=== PATIENT | male | born 1965 | race Caucasian/White ===

== ENCOUNTER 2022-04-08 19:52 | Emergency (ER) | payer OTHER ==
[~2022-04-08] VITALS: Ht 170.2 cm; Wt 80.0 kg
[2022-04-08] MEDS ORDERED: TETANUS, DIPHTHERIA, PERTUSSIS VAC/PF 0.5ML (>10YR OLD) IM ONE (21:00)
[2022-04-08] MEDS ORDERED: BACITRACIN ZINC OINT UDPKT TOP ONE (21:00)
[2022-04-08] MEDS ORDERED: LIDOCAINE HCL/PF 1% 10 MG/ML 5ML VIAL INFIL ONE (21:00)
[2022-04-08] MEDS ORDERED: HYDROCODONE/ACETAMINOPHEN 5/325MG TABLET PO ONE (21:00)
[2022-04-08] MEDS ORDERED: ONDANSETRON HCL 4MG/2ML INJ IV STA (21:51)
[2022-04-08] MEDS ORDERED: MORPHINE SULFATE 4 MG/ML CPJ (NOT FOR IM USE) IV STA (21:51)
[2022-04-08] MEDS ORDERED: CEFAZOLIN 1000MG PREMIX 50 ML IV ONE (22:00)
[2022-04-08] MEDS ORDERED: SODIUM CHLORIDE 0.9% 1,000 ML IV ONE (22:00)
[2022-04-08 22:51] VITALS: BP 177/94
== END 2022-04-09 01:40 | disposition left against medical advice (07) ==
LOC: ER 19:52
DX: S62.601B Fracture of unspecified phalanx of left index finger, initial encounter for open fracture (principal); S62.603B Fracture of unspecified phalanx of left middle finger, initial encounter for open fracture; S66.123A Laceration of flexor muscle, fascia and tendon of left middle finger at wrist and hand level, initial encounter; E11.9 Type 2 diabetes mellitus without complications; W27.0XXA Contact with workbench tool, initial encounter; Y93.89 Activity, other specified; Y92.018 Other place in single-family (private) house as the place of occurrence of the external cause
CPT/HCPCS: 12005; 73130; 82962; 90471; 90715; 96374; 96375; 99284; J0690; J2270; J2405; J3490; J7030